=== PATIENT | male | born 1950 | race African-American/Black ===

== ENCOUNTER → 2021-03-27 | Outpatient (CLI) | payer MEDICARE ==
[2016-03-25 14:40] VITALS: BP 154/76
[~2021-03-27] MED LIST: ATOR20TA58 PO; CHOL100013 PO; CYCL10TA2 PO; OMEP20CA16 PO; OXYC1TAB15 PO
--- NOTE | 2021-03-28 10:10 | CARD ---
MR#: [id number] Date of Study: 03/27/2021 Ordering Physician: DAMEON LU, Referring Physician: DAMEON LU, Tech: Ana Batista, [facility] APPROVED REPORT EXAM: Two-dimensional and M-mode echocardiogram with Doppler and color Doppler. Other Information Quality : AverageHR: 57bpm Technically limited study due to body habitus. INDICATION Syncope RISK FACTORS Hypertension Hyperlipidemia Asthma 2D DIMENSIONS Left Atrium(2D)3.9 (1.6-4.0cm)IVSd1.2 (0.7-1.1cm) Aortic Root(2D)3.7 (2.0-3.7cm)LVDd5.4 (3.9-5.9cm) LVOT Diameter2.1 (1.8-2.4cm)PWd1.1 (0.7-1.1cm) LVDs3.6 (2.5-4.0cm)FS (%) 33.1 % SV86.6 mlLVEF(%)61.2 (>50%) Aortic Valve AoV Peak Karl.182.5cm/sAoV VTI42.0cm AO Peak GR.13.3mmHgLVOT Peak Karl.89.5cm/s LVOT VTI 22.91cmAO Mean GR.7mmHg BLANE (VMAX)1.02id6WYC (VTI)1.88cm2 Mitral Valve MV E Yoautkbh10.6cm/sMV DECEL OWHY129ll MV A Yncwahba95.1cm/sMV [id number] E/A Ratio1.1MVA (PHT)3.04cm2 TDI E/Lateral E'10.1E/Medial E'14.4 Pulmonary Valve PV Peak Jpkeshqd08.7cm/sPV Peak Grad.3mmHg Tricuspid Valve TR P. Kuduujnz276iu/sRAP FUYIBQFP7dkCz TR Peak Gr.53kfOzNSOC40njSt Pulmonary Vein S1 Kcdievzg69.9cm/sD2 Pcwbdsox65.3cm/s PVa ahkbycee214flyk LEFT VENTRICLE The left ventricle is normal size. There is mild concentric left ventricular hypertrophy. The left ve ntricular systolic function is normal and the ejection fraction is within normal range. The Ejection Fraction is 50-55%. There is normal LV segmental wall motion. Transmitral Doppler flow pattern is Gra de II-pseudonormal filling dynamics. RIGHT VENTRICLE The right ventricle is mildly dilated. There is normal right ventricular wall thickness. The right ve ntricular systolic function is normal. ATRIA The left atrium is borderline dilated. The right atrium is borderline dilated. The interatrial septum is intact with no evidence for an atrial septal defect or patent foramen ovale as noted on 2-D or Do ppler imaging. AORTIC VALVE The aortic valve is moderately sclerotic and mildly thickened with restricted leaflet motion. Doppler and Color Flow revealed trace aortic regurgitation. There is no significant aortic valvular stenosis by doppler criteria. Calculated aortic valve area is 1.87 cm2 with maximum pressure gradient of 16 m mHg and mean pressure gradient of 9 mmHg. MITRAL VALVE The mitral valve is normal in structure and function. There is no evidence of mitral valve prolapse. There is no mitral valve stenosis. Doppler and Color-flow revealed trace mitral regurgitation. TRICUSPID VALVE The tricuspid valve is normal in structure and function. Doppler and Color Flow revealed trace tricus pid regurgitation with an estimated PAP of 28 mmHg. There is no tricuspid valve stenosis. PULMONIC VALVE The pulmonic valve is not well visualized. Doppler and Color Flow revealed trace pulmonic valvular re gurgitation. There is no pulmonic valvular stenosis. GREAT VESSELS The aortic root is normal in size. The IVC is normal in size and collapses >50% with inspiration. PERICARDIAL EFFUSION There is no evidence of significant pericardial effusion. Critical Notification Critical Value: No <Conclusion> The left ventricular systolic function is normal and the ejection fraction is within normal range. Th e Ejection Fraction is 50-55%. There is normal LV segmental wall motion. The aortic valve is moderately sclerotic and mildly thickened with restricted leaflet motion. There is no significant aortic valvular stenosis by doppler criteria. Calculated aortic valve area is 1.87 cm2 with maximum pressure gradient of 16 mmHg and mean pressure gradient of 9 mmHg. Signed by : Guille Espana, Electronically Approved : 03/28/2021 10:10:11
== END ==
LOC: ECHO 10:31
PROVIDERS: ATTEND Internal Medicine Cardiovascular Disease
DX: I35.1 Nonrheumatic aortic (valve) insufficiency (principal); I51.7 Cardiomegaly; R55 Syncope and collapse
CPT/HCPCS: 93306

== ENCOUNTER → 2021-10-15 | Outpatient (CLI) | payer MEDICARE ==
[2016-03-25 14:40] VITALS: BP 154/76
[~2021-10-15] MED LIST changes: +CYCL10TA19 PO; -CYCL10TA2 PO
--- NOTE | 2021-10-15 11:10 | KCIC ---
US RENAL BILAT History: Reason: HEMATURIA; HX OF PROSTATE CANCER / Spl. Instructions: / History: Comparison: None. Procedure: Transabdominal ultrasound images are obtained of the kidneys and bladder. Findings: Right kidney: measures 10.3 x 5.4 x 6.5 cm. Normal cortical echotexture. Corticomedullary differenti ation is preserved. No hydronephrosis. Left kidney: measures 11.2 x 5.3 x 6.0 cm. Normal cortical echotexture. Corticomedullary differentia tion is preserved. No hydronephrosis. Urinary bladder: Decompressed urinary bladder. Urinary bladder wall thickening measures 0.9 cm. Bilat eral ureteral jets not identified during time of imaging. The IVC is normal caliber. The visualized abdominal aorta is normal caliber. IMPRESSION: 1. Urinary bladder wall thickening, may relate to nondistention. Correlate for cystitis or chronic o utlet obstruction. Electronically signed by: Jair Finley DO (10/15/2021 11:08 AM) [id number]
== END ==
LOC: KCIC US 07:54
PROVIDERS: ATTEND Family Medicine
DX: N32.89 Other specified disorders of bladder (principal); R31.9 Hematuria, unspecified; Z85.46 Personal history of malignant neoplasm of prostate
CPT/HCPCS: 76770

== ENCOUNTER 2021-10-23 20:01 | Emergency (ER) | payer MEDICARE ==
[~2021-10-23] VITALS: Ht 185.4 cm; Wt 97.0 kg
[2021-10-23 20:32] LABS: RBC,URINE TNTC /HPF (0-2)
[2021-10-23 20:34] LABS: BACTERIA,URINE 0 /HPF (0-FEW)
[2021-10-23] MEDS ORDERED: oxyCODONE/APAP 5/325 1 TAB TABLET PO ONE (21:00)
[2021-10-23 21:24] LABS: BASO % 1 % (0-3); EOS # 0.2 x10^3/uL (0.0-0.7); EOS % 6 % (0-3); HEMATOCRIT 34.2 % (39.0-53.0); HEMOGLOBIN 11.7 g/dL (13.0-17.5); LYMPH # 0.9 x10^3/uL (1.0-4.8); LYMPH % 20 % (24-48); MEAN CORPUSCULAR HEMOGLOBIN 34 pg (25-35); MEAN CORPUSCULAR HGB CONC 34 g/dL (31-37); MEAN CORPUSCULAR VOLUME 98 fL (79-100); MONO # 0.5 x10^3/uL (0.0-1.1); MONO % 11 % (0-9); NEUT # 2.9 x10^3/uL (1.8-7.7); NEUT % 63 % (31-73); PLATELET COUNT 207 x10^3/uL (140-400); RED BLOOD COUNT 3.47 x10^6/uL (4.30-5.70); RED CELL DISTRIBUTION WIDTH 12.5 % (11.5-14.5); WHITE BLOOD COUNT 4.5 x10^3/uL (4.0-11.0)
[2021-10-23 21:34] LABS: CALCIUM 9.2 mg/dL (8.5-10.1); GFR 89.1; POTASSIUM 3.8 mmol/L (3.5-5.1)
[2021-10-23 22:15] VITALS: BP 113/73
[2021-10-23] MEDS ORDERED: OXYC1TAB15 PO (22:22)
[2021-10-23] MEDS ORDERED: HYOS0.1264 PO (22:22)
--- NOTE | 2021-10-23 22:23 | PHYS DOC ---
Past Medical History Past Surgical History: No Surgical History Smoking Status: Never Smoker Alcohol Use: None Adult General Chief Complaint Chief Complaint: BLOOD IN URINE HPI HPI The patient is a 71-year-old male with a history of hypertension and hyperlipidemia who presents for evaluation of right flank discomfort and gross hematuria which have been going on for about 3 weeks. Patient is currently under the care of Dr. Huynh, urologist at [facility]. Yesterday he had a cystoscopy and this coming Thursday he is scheduled for a CT urogram and will follow up in the office with Dr. Huynh again after that. Patient states the reason that he came to the emergency department this evening was discomfort which is not well controlled with Tylenol at home. States the right flank pain that he has today is the same pain he has had for 3 weeks and is no different. States his gross hematuria is the same as it has been. States he is mostly here for pain control. Denies fevers, nausea or vomiting, upper respiratory congestion/rhinorrhea, cough, sore throat, shortness of breath or chest pain of any kind, lightheadedness, abdominal pain of any kind, midline back pain, dysuria, groin pain, rectal pain, changes in bowel habits. Vital s igns are appropriate here in the patient is no acute distress, ambulatory with a narrow, steady gait to his ED bed. Review of Systems Review of Systems A 12 point review of systems was completed and was negative except where noted in HPI above. Current Medications Current Medications Current Medications Medications (Trade) Dose Ordered Sig/Char Start Time Stop Time Status Last Admin Dose Admin Oxycodone/ Acetaminophen (Percocet 5/325) 1 tab 1X ONCE 10/23/21 21:00 10/23/21 21:01 DC 10/23/21 21:00 1 TAB Allergies Allergies Allergies Coded Allergies Type Severity Reaction Last Updated Verified iodine Allergy Severe Hives 03/25/16 Yes Physical Exam Physical Exam 71-year-old male appearing nontoxic and in no acute distress. Head is normocephalic and atraumatic. Neck is supple and nontender. Oropharynx is moist. Lungs are clear to auscultation at all stations. There is normal S1 and S2 without rubs or gallops and capillary refill is appropriate, less than 2 seconds globally. Abdomen is soft, nontender nondistended. Skin is warm and dry without cyanosis, clubbing or edema. Psychiatrically, the patient demonstrates appropriate mood and affect and is alert. Current Patient Data Vital Signs Vital Signs Date Time Temp Pulse Resp B/P (MAP) Pulse Ox O2 Delivery O2 Flow Rate FiO2 10/23/21 21:00 18 10/23/21 20:15 98.6 89 137/70 (92) 100 Room Air 98.6 Lab Values Laboratory Tests Test 10/23/21 20:22 10/23/21 21:13 Urine Collection Type Unknown Urine Color (Auto) Red Urine Turbidity Bloody Urine pH (Auto) (<5.0-8.0) Urine Specific [place] (1.000-1.030) Urine Protein (Auto) mg/dL (Negative) Urine Glucose (Auto)(UA) mg/dL (Negative) Urine Ketones (Auto) mg/dL (Negative) Urine Blood (Auto) (Negative) Urine Nitrite (Negative) Urine Bilirubin (Auto) (Negative) Urine Urobilinogen (Auto) mg/dL (Normal) Urine Leukocyte Esterase (Auto) (Negative) Urine RBC Tntc /HPF (0-2) Urine WBC 5-10 /HPF (0-4) Urine Bacteria 0 /HPF (0-FEW) White Blood Count 4.5 x10^3/uL (4.0-11.0) Red Blood Count 3.47 x10^6/uL (4.30-5.70) L Hemoglobin 11.7 g/dL (13.0-17.5) L Hematocrit 34.2 % (39.0-53.0) L Mean Corpuscular Volume 98 fL (79-100) Mean Corpuscular Hemoglobin 34 pg (25-35) Mean Corpuscular Hemoglobin Concent 34 g/dL (31-37) Red Cell Distribution Width 12.5 % (11.5-14.5) Platelet Count 207 x10^3/uL (140-400) Neutrophils (%) (Auto) 63 % (31-73) Lymphocytes (%) (Auto) 20 % (24-48) L Monocytes (%) (Auto) 11 % (0-9) H Eosinophils (%) (Auto) 6 % (0-3) H Basophils (%) (Auto) 1 % (0-3) Neutrophils # (Auto) 2.9 x10^3/uL (1.8-7.7) Lymphocytes # (Auto) 0.9 x10^3/uL (1.0-4.8) L Monocytes # (Auto) 0.5 x10^3/uL (0.0-1.1) Eosinophils # (Auto) 0.2 x10^3/uL (0.0-0.7) Basophils # (Auto) 0.0 x10^3/uL (0.0-0.2) Sodium Level 135 mmol/L (136-145) L Potassium Level 3.8 mmol/L (3.5-5.1) Chloride Level 101 mmol/L (98-107) Carbon Dioxide Level 26 mmol/L (21-32) Anion Gap 8 (6-14) Blood Urea Nitrogen 8 mg/dL (8-26) Creatinine 1.0 mg/dL (0.7-1.3) Estimated GFR (Cockcroft-Gault) 89.1 Glucose Level 135 mg/dL (70-99) H Calcium Level 9.2 mg/dL (8.5-10.1) Laboratory Tests 10/23/21 21:13 Laboratory Tests 10/23/21 21:13 EKG EKG [] Radiology/Procedures Radiology/Procedures [] Course & Med Decision Making Course & Med Decision Making Work-up as above. Basic labs are unremarkable. Hemoglobin level is appropriate. Urinalysis as expected just shows large blood. Case discussed in detail with the on-call provider for patient's urologist Dr. Huynh. From her standpoint, no further evaluation needed at this time and patient may safely be discharged to follow-up closely with his urologist. She recommends low-dose Levsin and a few stronger pain pills for breakthrough discomfort. Will prescribe. Patient understands that if he feels worse instead of better or develops other new symptoms of concern that he will need to return to the emergency department immediately for reevaluation. All questions are answered. Dragon Disclaimer Dragon Disclaimer This electronic medical record was generated, in whole or in part, using a voice recognition dictation system. Departure Departure Impression: Primary Impression: Hematuria Additional Impression: Right flank pain Disposition: HOME / SELF CARE / HOMELESS Condition: IMPROVED Patient Instructions: Hematuria, Adult Additional Instructions: Follow-up very closely with your urologist in the office as scheduled in the next few days for a reevaluation of your symptoms and a discussion of next best steps in care. We are prescribing Levsin which is a medication you can take up to 3 times a day as needed for bladder spasm. It may help with your pain. For pain not well controlled with Levsin you may take a Percocet pill every 8 hours as needed. Be careful because Percocet can make you sleepy so do not drive or work or operate machinery while taking it. It is important that you not take Levsin and Percocet together as the two medicines together can make you too sleepy. Only take a Percocet if the Levsin is not working well enough, and wait a few hours after taking Levsin before taking a Percocet. Return to the emergency department right away for worsening symptoms of any kind or with any other new symptoms of concern. Scripts Oxycodone/Apap 5-325 (PERCOCET 5-325 MG TABLET ) 1 Each Tablet 1 TAB PO PRN Q8HRS PRN for BREAKTHROUGH PAIN, #8 TAB 0 Refills Prov: EVARISTO HARLEY MD 10/23/21 Hyoscyamine Sulfate (LEVSIN) 0.125 Mg Tablet 1 TAB PO TID PRN for PAIN, #16 TAB 0 Refills Prov: EVARISTO HARLEY MD 10/23/21 Problem Qualifiers Primary Impression: Hematuria Hematuria type: unspecified type Qualified Codes: R31.9 - Hematuria, unspecified EVARISTO HARLEY MD Oct 23, 2021 22:23
== END 2021-10-23 22:44 | disposition home or self-care (01) ==
LOC: ER 20:01
DX: R10.9 Unspecified abdominal pain (principal); R31.9 Hematuria, unspecified; I10 Essential (primary) hypertension; E78.5 Hyperlipidemia, unspecified; Z88.8 Allergy status to other drugs, medicaments and biological substances
CPT/HCPCS: 36415; 80048; 81001; 85025; 87086; 99283; 99284-25